=== PATIENT | female | born 1945 | race Asian ===

== ENCOUNTER 2019-11-23 07:21 | Outpatient (CLI) | payer MEDICARE, BC ==
[~2019-11-23 07:21] MED LIST: REGADENOSON 0.4 MG/5 ML SYRINGE ONE
== END 2019-11-23 23:59 | disposition home or self-care (01) ==
LOC: CFH 07:21
PROVIDERS: ATTEND Internal Medicine Cardiovascular Disease
DX: I10 Essential (primary) hypertension (principal); I49.40 Unspecified premature depolarization
CPT/HCPCS: 78452; 93017; A9502; J2785